=== PATIENT | female | born 1995 | race Caucasian/White ===

== ENCOUNTER 2018-09-24 08:38 | Emergency (ER) | payer OTHER ==
[~2018-09-24] VITALS: Ht 154.9 cm; Wt 45.7 kg
[2018-09-24] MEDS ORDERED: PROAAER10 INH (08:50)
[2018-09-24] MEDS ORDERED: ONDANSETRON 4MG/2ML VIAL (J2405) IV ONE (09:15)
[2018-09-24] MEDS ORDERED: NS 1,000 ML IV ONE (10:15)
[2018-09-24 10:55] LABS: BLOOD UREA NITROGEN 6 MG/DL (7-18); CALCIUM LEVEL 8.8 MG/DL (8.5-10.1); CARBON DIOXIDE LEVEL 25 MEQ/L (21-32); CHLORIDE LEVEL 105 MEQ/L (98-107); CREATININE FOR GFR 0.63 MG/DL (0.55-1.30); GLOMERULAR FILTRATION RATE > 60.0 (>60); GLUCOSE, FASTING 85 MG/DL (70-100); POTASSIUM SERUM 3.8 MEQ/L (3.5-5.1); SODIUM LEVEL 139 MEQ/L (136-145)
[2018-09-24] MEDS ORDERED: ONDA4TAB6 PO (12:14)
[2018-09-24 13:01] VITALS: BP 107/70
== END 2018-09-24 13:06 | disposition home or self-care (01) ==
LOC: M ED 08:38
DX: O21.9 Vomiting of pregnancy, unspecified (principal); O99.512 Diseases of the respiratory system complicating pregnancy, second trimester; Z3A.14 14 weeks gestation of pregnancy; Z88.2 Allergy status to sulfonamides
CPT/HCPCS: 80048; 81001; 87086; 96361; 96374; 99284; J2405

== ENCOUNTER 2019-03-10 20:28 | Outpatient (CLI) | payer OTHER ==
[~2019-03-10] VITALS: Ht 154.9 cm; Wt 57.2 kg
[~2019-03-10 20:28] MED LIST: ONDA4TAB6 PO; PROAAER10 INH
[2019-03-10 20:44] VITALS: BP 117/74
--- NOTE | 2019-03-10 21:52 | IPNPDOC ---
Text Note Date of Service The patient was seen on 03/10/19. NOTE S: Ms. Matthew is a 23yo by LMP, c/w 9+0wk US, who presents to LND triage for c/o ROM and contractions. She reports that she was lying in bed last night and felt a gush of fluid (around 2100); she states she has been leaking fluid all day today. She reports +FM, denies VB. She is unsure of how long she has been feeling painful contractions. Her is complicated by asthma (PRN albuterol inhaler). She is GBS Negative, Blood Type O Positive; Glucose screen was declined (she opted for fingersticks - WNL). O: VSS, BP Normotensive FHR 135, moderate variability, + accels, no decels noted CTX: x1; abdomen palpated as soft SVE: 40/-3, moderate and posterior; cephalic presentation Ferning: negative; nitrazine: negative GLADYS: SDP 4.7cm in RUQ Pt declined SSE. A/P: 23yo at 38+5wks, not in labor and not ruptured. Category I FHT/Reactive NST Pt discharged home with appropriate labor/danger precautions f/u in clinic for next JAYSON or sooner PRN VS,Fishbone, I+O VS, Fishbone, I+O Vital Signs Date Time Temp Pulse Resp B/P (MAP) Pulse Ox O2 Delivery O2 Flow Rate FiO2 03/10/19 20:44 98.4 95 18 117/74 (88) PAOLA CRISTINA CNM Mar 10, 2019 21:51
== END 2019-03-10 21:50 | disposition home or self-care (01) ==
LOC: M LDO 20:28
PROVIDERS: ATTEND Registered Nurse Maternal Newborn
DX: O26.893 Other specified pregnancy related conditions, third trimester (principal); N89.8 Other specified noninflammatory disorders of vagina; Z3A.38 38 weeks gestation of pregnancy
CPT/HCPCS: 59025; G0378; G0463

== ENCOUNTER 2019-03-16 15:51 | Outpatient (CLI) | payer OTHER ==
[~2019-03-16] VITALS: Ht 154.9 cm; Wt 57.4 kg
[2019-03-16 16:08] VITALS: BP 107/65
[2019-03-16] MEDS ORDERED: NO MEDS (16:19)
[2019-03-16] MEDS ORDERED: LR 1,000 ML IV ONE (16:30)
[2019-03-16] MEDS ORDERED: ONDANSETRON 4MG/2ML VIAL (J2405) IV ONE (16:30)
[2019-03-16 17:17] VITALS: BP 109/65
[2019-03-16 17:18] LABS: BASO % 0.2 % (0.0-1.0); EOS % 0.1 % (0.0-3.0); HEMATOCRIT 30.6 % (36.0-47.0); HEMOGLOBIN 9.3 g/dl (12.0-15.5); LYMPH # 1.6 10^3/uL (1.5-5.0); LYMPH % 18.6 % (24.0-44.0); MEAN CORPUSCULAR HEMOGLOBIN 25.5 pg (27.0-33.0); MEAN CORPUSCULAR HGB CONC 30.4 g/dl (32.0-36.5); MEAN CORPUSCULAR VOLUME 83.8 fl (80.0-96.0); MONO # 0.4 10^3/uL (0.0-0.8); MONO % 5.1 % (0.0-5.0); NEUTROPHILS # 6.5 10^3/uL (1.5-8.5); NEUTROPHILS % 75.8 % (36.0-66.0); PLATELET COUNT, AUTOMATED 159 10^3/uL (150-450); RED BLOOD COUNT 3.65 10^6/uL (4.00-5.40); WHITE BLOOD COUNT 8.6 10^3/uL (4.0-10.0)
[2019-03-16 17:21] LABS: APPEARANCE, URINE CLOUDY (CLEAR); BACTERIA, URINE AUTO 1+ (NEGATIVE); BILIRUBIN, URINE AUTO NEGATIVE (NEGATIVE); BLOOD, URINE BLOOD NEGATIVE (NEGATIVE); COLOR, URINE YELLOW (YELLOW); GLUCOSE, URINE (UA) AUTO NEGATIVE (NEGATIVE); KETONE, URINE AUTO 2+ mg/dL (NEGATIVE); LEUKOCYTE ESTERASE, URINE AUTO 2+ (NEGATIVE); MUCUS, URINE SMALL (NEGATIVE); NITRITE, URINE AUTO NEGATIVE (NEGATIVE); PROTEIN, URINE AUTO 2+ mg/dL (NEGATIVE); RBC, URINE AUTO 3 /HPF (0-3); SPECIFIC GRAVITY URINE AUTO 1.019 (1.002-1.035); SQUAMOUS EPITHELIAL CELL UR AU 32 /HPF (0-6); WBC, URINE AUTO 20 /HPF (0-3)
[2019-03-16] MEDS ORDERED: LR 1,000 ML IV SCH (17:30)
[2019-03-16 17:56] LABS: ALBUMIN 2.9 GM/DL (3.2-5.2); ALT/SGPT 10 U/L (12-78); BILIRUBIN,TOTAL 0.6 MG/DL (0.2-1.0); BLOOD UREA NITROGEN 5 MG/DL (7-18); CALCIUM LEVEL 8.4 MG/DL (8.5-10.1); CARBON DIOXIDE LEVEL 21 MEQ/L (21-32); CHLORIDE LEVEL 106 MEQ/L (98-107); CREATININE FOR GFR 0.53 MG/DL (0.55-1.30); GLOMERULAR FILTRATION RATE > 60.0 (>60); GLUCOSE, FASTING 73 MG/DL (70-100); SODIUM LEVEL 137 MEQ/L (136-145); TOTAL PROTEIN 6.5 GM/DL (6.4-8.2)
[2019-03-16 18:17] VITALS: BP 92/54
--- NOTE | 2019-03-16 18:36 | IPNPDOC ---
Text Note Date of Service The patient was seen on 03/16/19. NOTE 23 yo at 39+4 weeks gestation presented to L&D with the complaint of n/v and some diarrhea since yesterday evening. She last vomited this afternoon at around 1430 and has had trouble keeping things down. She denies any fevers/chills, dysuria, recent travel, sick contacts, or unusual changes in diet. She also denies any vaginal bleeding, or leakage of fluid. She has sporadic contractions by nothing particularly intense for consistent. She endorses excellent movement. Vitals - VSS, afebrile, normotensive, non tachycardic General - AAOX3, sitting up in bed, NAD, pleasant and conversant Abdomen - Gravid uterus, no fundal tenderness Extremities - No edema Declined cervical exam FHR tracing - Cat I throughout stay with moderate variability, +accels, no decels, sporadic ctx on toco. Labs: CBC: 8.6>9.3/30.6<159 BMP: 137/4.0--106/21--5/0.53<159 AST/ALT: 16/10 UA: dirty catch (32 epithelial cells), neg nitrite, SG 1.019, 2+ ketones Suspect viral GI syndrome. No signs/symptoms of appendicitis or other acute processes. She received IV fluid and zofran in triage with significant improvement in symptoms. She was PO tolerant throughout her triage stay. No fever or tachycardia. Reassuring status. Discharged home with return precautions. All questions answered. DO ARI Guy,Nilsa, I+O VS, Nilsa, I+O Laboratory Tests 03/16/19 16:42 Vital Signs Date Time Temp Pulse Resp B/P (MAP) Pulse Ox O2 Delivery O2 Flow Rate FiO2 03/16/19 17:17 67 18 109/65 (80) 03/16/19 16:08 99.2 ROMELIA GUY DO Mar 16, 2019 18:36
== END 2019-03-16 18:40 | disposition home or self-care (01) ==
LOC: M LDO 15:51
PROVIDERS: ATTEND Obstetrics & Gynecology
DX: O26.893 Other specified pregnancy related conditions, third trimester (principal); O21.2 Late vomiting of pregnancy; R19.7 Diarrhea, unspecified; Z3A.39 39 weeks gestation of pregnancy
CPT/HCPCS: 59025; 80053; 81001; 85025; 96361; 96374; G0378; G0463; J2405

== ENCOUNTER 2019-03-19 05:46 | Outpatient (CLI) | payer OTHER ==
[~2019-03-19] VITALS: Ht 154.9 cm; Wt 57.0 kg
[~2019-03-19 05:46] MED LIST changes: +NO MEDS
== END 2019-03-19 07:30 | disposition home or self-care (01) ==
LOC: M LDO 05:46
PROVIDERS: ATTEND Obstetrics & Gynecology
DX: O47.1 False labor at or after 37 completed weeks of gestation (principal); Z3A.40 40 weeks gestation of pregnancy
CPT/HCPCS: 59025; G0378; G0463

== ENCOUNTER 2019-03-19 10:41 | Inpatient (IN) | payer OTHER ==
[2019-03-19] VITALS (35 sets, daily range): BP systolic 84–127; BP diastolic 47–73
[~2019-03-19] VITALS: Ht 154.9 cm; Wt 60.0 kg
[2019-03-19] MEDS: PRENATAL VITAMINS CHEWABLE TABLET PO SCH (09:00)
[2019-03-19] MEDS ORDERED: LACTATED RINGER'S 1000 ML IV STA (11:21)
--- NOTE | 2019-03-19 11:48 | HPEPDOC ---
Obstetrical History & Physical General Date of Admission Mar 19, 2019 at 11:20 History of Present Illness Marge is a 23yo with SIUP at 40wk by lmp c/w early u/s who re-presents via EMS for painful ctx q3min that are stronger than they were when she was seen about 3hr earlier on L&D and discharged home by Dr. Segura 3cm dilated. She has had ctx since 0200 and has not slept since then. No gush of fluid. No vaginal bleeding. Feels movement. No f/c/n/v/CP/SOB. Chief Complaint: Contractions, term Information Provided By: Patient Care Care: Good Care Dating Final EDC: Mar 19, 2019 Final EDC by: LMP, 1st trimester (US) Antepartum Course Diagnos(e)s Asthma (albuterol, singulair), anemia, 11lb weight gain in Height (inches): 61 Pre- weight (lbs.): 110 Admission Weight (lbs.): 121 Change in Weight (lbs.): 11 Past Medical History Past Obstetrical History : Past Obstetrical History: Multigravida (2018 uncomplicated term , 8lb1oz) Type of Delivery: Spontaneous Vaginal Del. 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 ABDOMEN: Gravid and non-tender to touch. FETUS: Is vertex (VTX) by sterile vaginal examination (SVE) EXTREMITIES: No edema Laboratory Data 24H LABS Laboratory Tests 2 03/19/19 11:22: Serology Scanned Report Hepatitis B Testing CBC/BMP 03/09: H/H 01/10.8, plt 141 Pertinent Laboratoy Data Blood Type: O+ RBC Antibody Screen: Negative HIV: Negative Hepatitis B: Negative Hepatitis C: Unknown Rapid Plasma Reagin: Nonreactive Rubella: Immune Varicella: Immune Chlamydia/Gonorrhea: Negative Group B Streptococcus: Negative Glucose Tolerance Test: 0 (fingersticks wnl 02/27 to 03/04) Anatomy Ultrasound Ultrasound Date: Nov 16, 2018 Placenta Location: Posterior Normal Anatomy: Yes Placenta Previa: No Other Ultrasounds growth scan Jan 65%ile (5lb7oz) Steroid Therapy Steroid Therapy: No Vaginal Examination Dilation: 5 cm Effacement: 80% Station: -1 Cervical Consistency: Soft Cervical Position: Posterior Presentation: Cephalic presentation Assessment Heart Rate (FHR): 130 Variability: Moderate Accelerations: Positive Decelerations: None Tocometer Contractions: Yes Frequency: regular, every 3-7 min. Duration: greater than 60 seconds Strength: palpated as strong Assessment/Plan Assessment Marge is a 23yo with SIUP at 40wk by lmp c/w early u/s in active labor with SCE 5/80/-1, ctx q3-4min. Cat I FHRT. Vitals wnl. Benign exam. GBS negative. PMhx/ course complicated by: Mild intermittent asthma (albuterol, singulair), anemia, 11lb weight gain in Plan Admit and orient. Gandy Dancer and consent. Diet: clear liquids Group B Streptococcus (GBS) negative Labs and intravenous (IV) per unit protocol. Lactated Ringers (LR): Bolus 1000 mL, then at 125 mL/hr. Anticipate normal spontaneous delivery () Safe to proceed MD Gil Welch Katrina D MD Mar 19, 2019 11:32
[2019-03-19 12:01] LABS: HEMATOCRIT 35.3 % (36.0-47.0); HEMOGLOBIN 10.7 g/dl (12.0-15.5); MEAN CORPUSCULAR HEMOGLOBIN 25.6 pg (27.0-33.0); MEAN CORPUSCULAR HGB CONC 30.3 g/dl (32.0-36.5); MEAN CORPUSCULAR VOLUME 84.4 fl (80.0-96.0); PLATELET COUNT, AUTOMATED 151 10^3/uL (150-450); RED BLOOD COUNT 4.18 10^6/uL (4.00-5.40); WHITE BLOOD COUNT 10.4 10^3/uL (4.0-10.0)
[2019-03-19] MEDS ORDERED: FENTANYL 2MCG/ML ROPIVACAINE 0.2% IN 0.9% NACL 100ML IVBAG As Ordered ONE (12:12)
[2019-03-19] MEDS ORDERED: OXYTOCIN 30 UNITS IN 0.9% NaCl 500ML IV BAG (J2590) As Ordered ONE ×2 (12:22→19:31)
[2019-03-19] MEDS: LR 1,000 ML IV SCH ×3 (12:54→18:20)
[2019-03-19] MEDS: FENTANYL/ROPIVACAINE/NACL BAG 100 ML EPIDURAL SCH ×2 (13:22→20:00)
[2019-03-19] MEDS ORDERED: LACTATED RINGER'S 1000 ML IV PRN (13:30)
[2019-03-19] MEDS ORDERED: REFRIGERATOR IV KEYS XX PRN (13:30)
[2019-03-19] MEDS ORDERED: diphenhydrAMINE INJ 50MG/ML VIAL (J1200) IV PRN (13:30)
[2019-03-19] MEDS ORDERED: NALOXONE INJ 0.4 MG/1 ML VIAL (J2310) IV PRN (13:30)
[2019-03-19] MEDS ORDERED: EPIDURAL/PCA KEYS XX PRN (13:30)
[2019-03-19] MEDS ORDERED: ONDANSETRON 4MG/2ML VIAL (J2405) IV PRN (13:30)
[2019-03-19] MEDS ORDERED: EPIDURAL COMMENT XX SCH (13:30)
[2019-03-19] MEDS: ePHEDrine SULFATE 25 MG/5 ML(5MG/ML) SYRINGE IV PRN ×3 (13:42→14:10)
--- NOTE | 2019-03-19 13:45 | HPE ---
DATE OF ADMISSION: 03/19/2019 22-year-old, 2, para 1, last menstrual period (LMP) , estimated date of confinement (EDC) of 03/19/2019, at 40 weeks of gestation, history of intermittent contractions and no vaginal bleeding or discharge. RISK FACTORS: She has asthma. PAST HISTORY: In 2018, at 40 weeks, spontaneous vaginal delivery, infant 8 pounds 1 ounce. Labs are O+, HIV negative, hepatitis negative, RPR negative, rubella immune. Varicella immune. Urine negative. Gonorrhea, Chlamydia, and GBS is negative. 1-hour glucose was elevated. Her A1c was 4.6 and her fingersticks have all been normal. On examination, she has no distress. Symphysis fundus height is 40, vertex. Four quadrant bowel sounds are noted. Appropriate symphysis fundus height. Pelvic examination very posterior, 3 cm, thick. No vaginal bleeding or discharge. Blood pressure 119/76, respirations are 18, pulse 84, temperature is 98.4. In summary, we have a term gestation with [place] contractions, not in active labor, category 1 strip. She was discharged with followup instructions. Her appointment at the clinic was today. We have asked her to call and make the appointment in 48 hours. We do anticipate her going to spontaneous labor, which should probably not require an induction of labor, however that will be determined in the next 48 hours.
[2019-03-19] MEDS ORDERED: OXYTOCIN DRIP 30 UNITS in IV 1 EA IV SCH ×4 (19:29)
[2019-03-19] MEDS ORDERED: DOCUSATE SODIUM 100 MG CAP PO PRN (19:30)
[2019-03-19] MEDS ORDERED: RHOGAM 300 MCG (1500 IU) INJ (J2790) IM SCH (19:30)
[2019-03-19] MEDS ORDERED: ACETAMINOPHEN TAB 650MG DOSE (2X325MG) PO PRN (19:30)
[2019-03-19] MEDS ORDERED: miSOPROStol 200 MCG TAB (S0191) PR ONE (19:30)
[2019-03-19] MEDS ORDERED: DIBUCAINE 1% OINTMENT 30GM TOP PRN (19:30)
[2019-03-19] MEDS ORDERED: miSOPROStol 100 MCG TAB (S0191) PR ONE (19:30)
[2019-03-19] MEDS ORDERED: IBUPROFEN 600 MG TAB PO PRN (19:30)
[2019-03-19] MEDS ORDERED: IBUPROFEN 800 MG TAB PO PRN (19:30)
[2019-03-19] MEDS ORDERED: METHYLERGONOVINE MALEATE 0.2 MG/ML VIAL (J2210) IM ONE (19:30)
[2019-03-19] MEDS ORDERED: MEASLES,MUMPS,RUBELLA VACCINE INJ (MMR-II) (90707) SC SCH (19:30)
--- NOTE | 2019-03-19 19:41 | DNPDOC ---
[facility] Delivery Note Delivery Note DATE OF DELIVERY: 03/19/2019 PREDELIVERY DIAGNOSIS: 40w0d gestation and labor. POST DELIVERY DIAGNOSIS: Delivered. PROCEDURE: Spontaneous vaginal delivery [employer]ER: Dr. Re Cordero MD ANESTHESIA: epidural ESTIMATED BLOOD LOSS: 350 mL. FINDINGS: 8 pound 0 ounce (3620g) female , Score 9/9, loose nuchal cord times 1 DELIVERY SUMMARY: Marge is a 23yo [id number] s/p uncomplicated at 40w0d after presenting in active labor, delivering at 1828 on 03/19/2019. She was admitted at 5cm and had SROM, clear, then progressed to complete with an epidural. She reached C/C/0 and began pushing. Infant's head delivered OA and restituted MARIAELENA. Right anterior shoulder delivered followed by posterior shoulder and corpus. was vigorous, had spontaneous cry, placed on maternal chest, apgars 9/9, nose and mouth suctioned with bulb suction. Cord was clamped x2 and cut by FOB after 2 minutes. With traction on the cord and uterine massage, placenta delivered spontaneously and intact with 3 vessel centrally inserted cord. More uterine massage performed with fundus then firm at u-2cm. (However, during the perineal repair, she continued to get boggy and would firm with massage, so 0.2mg IM methergine was given and she had 800mcg cytotec placed rectally after the repair. She will also receive another bag of 30u IV pitocin.) Inspection of perineum and vagina revealed superficial a 3a laceration (with no real bleeding, likely this was a repeat laceration of the laceration she had with first delivery- she endorses it took a long time to heal and she had to 'sit on a doughnut'). Laceration was reapproximated in routine fashion using 0 vicryl and 3-0 vicryl with complete hemostasis and total reapproximation. All counts correct x2. Mom and infant were doing well when I left the room. MD Gil Welch Katrina D MD Mar 19, 2019 19:41
[2019-03-20 02:08] VITALS: BP 102/51
[2019-03-20] MEDS: ACETAMINOPHEN 500 MG TAB PO PRN ×2 (02:12→21:14)
[2019-03-20 06:49] VITALS: BP 98/54
[2019-03-20] MEDS: PRENATAL VITAMINS CHEWABLE TABLET PO SCH (08:55)
[2019-03-20 09:37] LABS: HEMATOCRIT 30.6 % (36.0-47.0); MEAN CORPUSCULAR HEMOGLOBIN 25.1 pg (27.0-33.0); MEAN CORPUSCULAR HGB CONC 29.4 g/dl (32.0-36.5); MEAN CORPUSCULAR VOLUME 85.5 fl (80.0-96.0); PLATELET COUNT, AUTOMATED 143 10^3/uL (150-450); RED BLOOD COUNT 3.58 10^6/uL (4.00-5.40); WHITE BLOOD COUNT 12.2 10^3/uL (4.0-10.0)
--- NOTE | 2019-03-20 10:01 | IPNPDOC ---
Progress Note Date of Service: Mar 20, 2019 Day#: 1 Progress Note PPD 1 SUBJECT: Marge is a 23yo [id number] s/p uncomplicated at 40w0d after presenting in active labor, delivering at 1827 on 03/19, doing well day # 1. She had repair of 3a mll which was likely recurrent from prior delivery. She has ambulated a couple of times but was a little unsteady/lightheaded the first time (she believes was due to getting behind on fluids, not eating and little sleep). She has been voiding spontaneously without issue and tolerated crackers so far. Breast feeding without issue. Reports lochia is like a normal period, tapering. She notes having a fever of 100.9F and on review of vital signs, it was documented that she had a temporal temp of 100.9F last night that resolved- I was not notified of this, but it was likely secondary to the cytotec I placed rectally for the patient after her delivery for prophylaxis against future bleeding. She does not have aches or chills this morning and states fever resolved. OBJECTIVE: VITAL SIGNS: Within normal limits, afebrile. Alert and oriented times three. Abdomen: Fundus firm at U, uterus is slightly deviated to the right. Abdomen otherwise soft, NTTP. Extremities: no pain with palpation of calves Labs: starting H/H 10.7/35.3 repeat PP H/H 9/30.6 ASSESSMENT: Marge is a 23yo [id number] s/p uncomplicated at 40w0d after presenting in active labor, delivering at 1827 on 03/19, doing well day # 1. Vitals within normal limits, afebrile. Temp of 100.9F last night (temporal) likely 2/2 cytotec placed after delivery- it has resolved and she has no other sx. Repeated CBC since patient had some lightheadedness and a little extra bleeding (NO PPH), and it had expected change. She is hemodynamically stable with no evidence of infection. PLAN: 1. Routine care 2. Tylenol and Motrin for pain. 3. Encourage breast feeding and ambulation. 4. Undecided on contraception 5. Regular diet 6. Likely discharge home tomorrow if meeting all milestones Dr. Re Cordero MD VS, I&O, 24H, [facility] Vital Signs/I&O Vital Signs Date Time Temp Pulse Resp B/P (MAP) Pulse Ox O2 Delivery O2 Flow Rate FiO2 03/20/19 06:49 99.2 81 19 98/54 (69) 03/20/19 02:08 98 I&O- Last 24 Hours up to 6 AM 03/20/19 06:00 Intake Total 1400 ml Output Total 500 ml Balance 900 ml Laboratory Data 24H LABS Laboratory Tests 2 03/19/19 11:22: Serology Scanned Report Hepatitis B Testing 03/19/19 11:40: Nucleated Red Blood Cells % (auto) 0.0, Syphilis Serology NONREACTIVE 03/20/19 09:28: Nucleated Red Blood Cells % (auto) 0.0 CBC/BMP Laboratory Tests 03/19/19 11:40 03/20/19 09:28 Re Cordero MD Mar 20, 2019 10:01
[2019-03-20 18:26] VITALS: BP 101/57
[2019-03-21 05:59] VITALS: BP 105/57
[2019-03-21] MEDS ORDERED: DOCU100C16 PO (06:43)
[2019-03-21] MEDS ORDERED: DIBU10OI TOP (06:43)
[2019-03-21] MEDS ORDERED: IBUP80TA PO (06:43)
[2019-03-21] MEDS: PRENATAL VITAMINS CHEWABLE TABLET PO SCH (08:44)
--- NOTE | 2019-03-21 14:02 | DSES ---
DATE OF ADMISSION: 03/19/2019 DATE OF DISCHARGE: 03/21/2019 23-year-old 2, now para 2 admitted in spontaneous labor with contractions at 40 weeks of gestation. She had a spontaneous vaginal delivery of a live female weighing 8 pounds 0 ounces, 3620 grams, scores of 9 and 9 at 1 and 5 minutes, respectively. She had an atonic uterus requiring Cytotec and Methergine, as well as a perineal tear, which was repaired. Her blood pressure on discharge was 105/57, respirations 16, pulse 60, temperature 97.5. Her admitting hemoglobin was 10.7, hematocrit 35.3 and platelets were 151. hemoglobin 9.0, hematocrit 30.6 and platelets were 143. We discussed phlebitis, cystitis, mastitis, endometritis, cellulitis, diet, exercise, pain management, perineal/breast/wound care. On discharge, she is normocephalic, atraumatic. Neck: Full range of motion. Pupils equal and reactive to light. Distal pulses symmetric. No evidence of DVT, PE or superficial phlebitis. Chest is clear bilaterally to the bases. No wheezes or rhonchi. No costovertebral angle tenderness. Abdomen: Soft. Uterus 2 below. Lochia is moderate. Four quadrant bowel sounds are noted. Perineum is intact. No rashes, lesions or pruritus. No arthralgia, myalgia. No complaint joint pain. No complaint cough, wheeze, shortness breath or dyspnea on exertion. No nausea, vomiting, diarrhea or constipation. She is presently breast-feeding. Medications were dispensed. All questions were answered. 20-minute discussion. Discharge today. Followup in 6 weeks with [facility].
== END 2019-03-21 12:30 | disposition home or self-care (01) | DRG 768 ==
LOC: M LDO 10:41 → M LDI 11:20 → M OBS 22:20
PROVIDERS: ADMIT Obstetrics & Gynecology; ATTEND Obstetrics & Gynecology
PROC: 10E0XZZ Delivery of Products of Conception, External Approach (ICD-10-PCS; principal; 2019-03-19)
PROC: 0DQR0ZZ Repair Anal Sphincter, Open Approach (ICD-10-PCS; 2019-03-19)
DX: O69.81X0 Labor and delivery complicated by cord around neck, without compression, not applicable or unspecified (principal); Z37.0 Single live birth; O70.21 Third degree perineal laceration during delivery, IIIa; Z3A.40 40 weeks gestation of pregnancy; O75.89 Other specified complications of labor and delivery

== ENCOUNTER 2022-01-26 18:46 | Emergency (ER) | payer OTHER ==
[~2022-01-26] VITALS: Ht 154.9 cm; Wt 51.4 kg
[~2022-01-26 18:46] MED LIST changes: +DIBU28OI2 TOP; +DOCU100C16 PO; +IBUP80TA PO
[2022-01-26 18:47] VITALS: BP 117/77
== END 2022-01-26 22:35 | disposition left against medical advice (07) ==
LOC: M ED 18:46
DX: Z53.21 Procedure and treatment not carried out due to patient leaving prior to being seen by health care provider (principal)

== ENCOUNTER 2022-09-05 18:13 | Emergency (ER) | payer OTHER ==
[~2022-09-05] VITALS: Ht 154.9 cm; Wt 49.0 kg
[2022-09-05] MEDS ORDERED: METOCLOPRAMIDE INJ 10MG/2ML VIAL IV ONE (19:25)
[2022-09-05] MEDS ORDERED: NS 1,000 ML IV ONE (19:25)
[2022-09-05 19:51] LABS: BASO % 0.2 % (0.0-1.0); EOS # 0.1 10^3/uL (0.0-0.5); EOS % 0.9 % (0.0-3.0); HEMATOCRIT 39.4 % (36.0-47.0); HEMOGLOBIN 14.3 g/dl (12.0-15.5); LYMPH # 2.4 10^3/uL (1.5-5.0); LYMPH % 21.6 % (24.0-44.0); MEAN CORPUSCULAR HEMOGLOBIN 32.9 pg (27.0-33.0); MEAN CORPUSCULAR HGB CONC 36.3 g/dl (32.0-36.5); MEAN CORPUSCULAR VOLUME 90.8 fl (80.0-96.0); MONO # 0.6 10^3/uL (0.0-0.8); MONO % 5.1 % (2.0-8.0); NEUTROPHILS # 7.9 10^3/uL (1.5-8.5); PLATELET COUNT, AUTOMATED 188 10^3/uL (150-450); RED BLOOD COUNT 4.34 10^6/uL (4.00-5.40)
[2022-09-05 20:19] LABS: BLOOD UREA NITROGEN 10 MG/DL (9-23); CALCIUM LEVEL 8.9 MG/DL (8.5-10.1); CARBON DIOXIDE LEVEL 25 MMOL/L (20-31); CHLORIDE LEVEL 103 MMOL/L (98-107); CREATININE FOR GFR 0.57 MG/DL (0.55-1.30); GLOMERULAR FILTRATION RATE > 60.0 (>60); GLUCOSE, FASTING 89 MG/DL (60-100); POTASSIUM SERUM 3.5 MMOL/L (3.5-5.1); SODIUM LEVEL 138 MMOL/L (136-145)
[2022-09-05 20:46] LABS: HCG, SERUM QUANTITATIVE 173321.1 MIU/ML (<4.2)
[2022-09-05 22:56] VITALS: BP 106/74; TEMP 98.9; O2SAT 100
[2022-09-05] MEDS ORDERED: CEPH500T PO (23:24)
[2022-09-05] MEDS ORDERED: METOCLOPRAMIDE 10MG TAB PO ONE (23:25)
[2022-09-05] MEDS ORDERED: ONDANSETRON 4MG ORAL DISINTEGRATING TAB PO ONE (23:25)
[2022-09-05] MEDS ORDERED: CEPHALEXIN 500 MG CAP PO ONE (23:25)
== END 2022-09-05 23:29 | disposition home or self-care (01) ==
LOC: M ED 18:13
DX: O21.0 Mild hyperemesis gravidarum (principal); O23.31 Infections of other parts of urinary tract in pregnancy, first trimester; Z3A.08 8 weeks gestation of pregnancy; O99.511 Diseases of the respiratory system complicating pregnancy, first trimester; Z88.2 Allergy status to sulfonamides
CPT/HCPCS: 76801; 80048; 81001; 84702; 85025; 87086; 93976; 96374; 99284; J2765